=== PATIENT | female | born 1985 | race Caucasian/White ===

== ENCOUNTER 2020-11-04 08:00 | Outpatient (CLI) | payer BC | END 2020-11-04 23:59 | disposition home or self-care (01) | LOC: LAB.N 08:00 | PROVIDERS: ATTEND Physician Assistant Medical | DX: R05 Cough (principal); Z20.822 Contact with and (suspected) exposure to COVID-19 ==

== ENCOUNTER 2020-12-03 08:00 | Outpatient (CLI) | payer BC | END 2020-12-03 23:59 | disposition home or self-care (01) | LOC: LAB.N 08:00 | PROVIDERS: ATTEND Physician Assistant Medical | DX: R05 Cough (principal); Z20.822 Contact with and (suspected) exposure to COVID-19 ==

== ENCOUNTER 2021-07-30 17:18 | Emergency (ER) | payer BC ==
[2021-07-30 17:40] LABS: BASOPHILS # (AUTO) 0.1 10^3/uL (0.0-0.1); BASOPHILS % (AUTO) 0.7 %; EOSINOPHILS # (AUTO) 0.2 10^3/uL (0.0-0.7); EOSINOPHILS % (AUTO) 1.4 %; HGB - HEMOGLOBIN 14.7 g/dL (12.0-16.0); LYMPHOCYTES # (AUTO) 2.9 10^3/uL (1.5-3.5); LYMPHOCYTES % (AUTO) 26.8 %; MEAN CORPUSCULAR HEMOGLOBIN 27.9 pg (27.0-31.0); MEAN CORPUSCULAR HGB CONC 32.7 g/dL (32.0-36.0); MEAN CORPUSCULAR VOLUME 85.4 fL (81.0-99.0); MEAN PLATELET VOLUME 9.7 fL (7.9-10.8); MONOCYTES # (AUTO) 0.8 10^3/uL (0.0-1.0); MONOCYTES % (AUTO) 7.2 %; NEUTROPHILS # (AUTO) 6.9 10^3/uL (1.5-6.6); NEUTROPHILS % (AUTO) 63.6 %; PLT - PLATELET COUNT 467 10^3/uL (130-450); RED BLOOD COUNT 5.27 10^6/uL (4.20-5.40); RED CELL DISTRIBUTION WIDTH 13.2 % (12.0-15.0); WHITE BLOOD COUNT 10.8 x10^3/uL (4.8-10.8)
--- NOTE | 2021-07-30 17:48 | ED Physician Documentation ---
History of Present Illness - Stated complaint Stated Complaint: CHEST PAIN - Chief complaint Chief Complaint: Cardiac - Additonal information Additional information: 35-year-old female presents emergency department for evaluation of acute onset chest pain pressure as well as shortness of air. She has been busy the last few days caring for her sick infant who was recently diagnosed with pneumonia. She was at home sitting on the couch when she began to feel a squeezing chest pain. Symptoms began about 90 minutes ago. She endorses pain with deep breath. She has the Mirena IUD in place. She has never had any history of coronary jordy ry disease though she was diagnosed with hypertension in high school and states that she has had every test imaginable for further evaluation of this. No tobacco history. No abdominal pain nausea or vomiting. She does have a mild headache Review of Systems Constitutional: denies: Fever, Chills Eyes: reports: Reviewed and negative Ears: reports: Reviewed and negative Nose: reports: Reviewed and negative Throat: reports: Reviewed and negative Cardiac: reports: Chest pain / pressure. denies: Pedal edema, Calf pain Respiratory: reports: Dyspnea. 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 : None HEENT: None Psych: None Musculoskeletal: None Derm: None - Past Surgical History Past Surgical History: No - Present Medications Home Medications: Ambulatory Orders Medication Instructions Recorded Confirmed Cetirizine HCl [Zyrtec] 10 mg PO DAILY 07/30/21 07/30/21 Sertraline [Zoloft] 100 mg PO DAILY 07/30/21 07/30/21 amLODIPine [Norvasc] 5 mg PO DAILY 07/30/21 07/30/21 - Allergies Allergies/Adverse Reactions: Allergies Allergy/AdvReac Type Severity Reaction Status Date / Time Penicillins Allergy Hives Verified 07/30/21 17:23 - Social History Does the pt smoke?: No Smoking Status: Never smoker Does the pt drink ETOH?: No Does the pt have substance abuse?: No - Immunizations Immunizations are current?: Yes - POLST Patient has POLST: No PD ED PE NORMAL - General General: Alert and oriented X 3, No acute distress, Well developed/nourished - HEENT HEENT: Atraumatic, Moist mucous membranes, Pharynx benign - Neck Neck: Supple, no meningeal sign, No adenopathy - Cardiac Cardiac: RRR, No murmur - Respiratory Respiratory: No respiratory distress, Clear bilaterally - Abdomen Abdomen: Normal bowel sounds, Soft, Non tender, Non distended - Back Back: No CVA TTP, No spinal TTP - Derm Derm: Normal color, Warm and dry, No rash - Extremities Extremities: No deformity, No tenderness to palpate, Normal ROM s pain - Neuro Neuro: Alert and oriented X 3, 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 Eye Opening: Spontaneous Motor: Obeys Commands Verbal: Oriented GCS Score: 15 Results - Vitals Vitals: Vital Signs - 24 hr 07/30/21 07/30/21 07/30/21 17:23 18:28 19:13 Temperature 36.5 C Heart Rate 100 96 96 Respiratory 16 19 22 Rate Blood Pressure 180/100 H 159/59 H 144/96 H O2 Saturation 99 97 97 Oxygen O2 Source Room air - EKG (time done) 1724 Rate: Rate (enter#) (98) Rhythm: NSR [place]: Normal Intervals: Normal [place] QRS: Normal Ischemia: Normal ST segments Compare to prior EKG: Old EKG unavailable Computer interpretation: Agree with computer - Labs Labs: Laboratory Tests 07/30/21 07/30/21 07/30/21 17:35 17:35 17:35 WBC 10.8 RBC 5.27 Hgb 14.7 Hct 45.0 MCV 85.4 MCH 27.9 MCHC 32.7 RDW 13.2 Plt Count 467 H MPV 9.7 Neut # (Auto) 6.9 H Lymph # (Auto) 2.9 Sharp # (Auto) 0.8 Eos # (Auto) 0.2 Baso # (Auto) 0.1 Absolute Nucleated RBC 0.00 Nucleated RBC % 0.0 D-Dimer Sodium 137 Potassium 3.4 L Chloride 104 Carbon Dioxide 24 Anion Gap 9.0 BUN 14 Creatinine 0.8 Estimated GFR (MDRD) 83 L Glucose 127 H Calcium 9.1 Total Bilirubin 0.5 AST 20 ALT 23 Alkaline Phosphatase 79 Troponin I High Sens < 2.3 L Total Protein 8.0 Albumin 4.3 Globulin 3.7 Albumin/Globulin Ratio 1.2 Lipase 35 07/30/21 07/30/21 17:56 18:44 WBC RBC Hgb Hct MCV MCH MCHC RDW Plt Count MPV Neut # (Auto) Lymph # (Auto) Sharp # (Auto) Eos # (Auto) Baso # (Auto) Absolute Nucleated RBC Nucleated RBC % D-Dimer 300.5 H Sodium Potassium Chloride Carbon Dioxide Anion Gap BUN Creatinine Estimated GFR (MDRD) Glucose Calcium Total Bilirubin AST ALT Alkaline Phosphatase Troponin I High Sens < 2.3 L Total Protein Albumin Globulin Albumin/Globulin Ratio Lipase - Rads (name of study) CT pulm angio Radiology: Final report received (no evidenc eof PE. No acute airspace consolidation) cxr Radiology: Final report received (no acute cardiopulmonary process) PD MEDICAL DECISION MAKING - ED course Complexity details: reviewed results, re-evaluated patient, considered differential, d/w patient ED course: 35-year-old female presents emergency department for evaluation of substernal chest pain and pressure that began at rest this evening. She does have a history of hypertension. She also appears exceedingly anxious though she does not feel anxiety is the cause of her symptoms. Screening labs showed a mildly elevated D-dimer. This was completed as she had complained of pleuritic pain especially when taking a deep breath. Subsequent CT imaging was negative for a PE. No focal consolidations. Screening EKG was nonischemic high-sensitivity troponin negative x2. At the bedside we discussed screening labs EKG and imaging results. Patient is feeling better though she has had time to reflect and recognizes the anxiety is likely a contributing factor to this ED visit. I have encouraged her to have close follow-up with a primary doctor as well as a therapist to discuss her overwhelming concerns that are occurring in her life. Emergent return precautions otherwise discussed. Departure - Departure Disposition: Home, Self Care Clinical Impression: Chest pain Qualifiers: Chest pain type: chest pain on breathing Qualified Code(s): R07.1 - Chest pain on breathing; R07.81 - Pleurodynia Condition: Stable Record reviewed to determine appropriate education?: Yes Comments: Barbara you are seen today in the emergency department for some pain in your chest that occurred suddenly at rest. As we discussed at the bedside you did have a mildly elevated D-dimer. We did do a CT of your chest that did not show any pulmonary embolus. Your screening EKG, labs and chest x-ray were also otherwise normal. I do suspect that there is a component of anxiety that is contributing to your symptoms today. I encourage you to follow closely with your primary care doctor. You may benefit from some counseling or talk therapy to help you better manage your multiple stressors. If at any point you feel that your symptoms worsen, he cannot breathe adequately or have any fainting episodes and please return to the ER for second evaluation.
[2021-07-30 17:53] LABS: ALBUMIN 4.3 g/dL (3.2-5.5); ALBUMIN/GLOBULIN RATIO 1.2 (1.0-2.2); BILIRUBIN,TOTAL 0.5 mg/dL (0.2-1.0); CALCIUM 9.1 mg/dL (8.5-10.3); CREATININE 0.8 mg/dL (0.4-1.0); POTASSIUM 3.4 mmol/L (3.5-5.0)
--- NOTE | 2021-07-30 18:06 | XRAY Report ---
PROCEDURE: Chest 1 View X-Ray INDICATIONS: Chest pain TECHNIQUE: One view of the chest was acquired. COMPARISON: None FINDINGS: Surgical changes and devices: None. Lungs and pleura: No pleural effusions or pneumothorax. Lungs are clear. Mediastinum: Mediastinal contours appear normal. Heart size is normal. Bones and chest wall: No suspicious bony lesions. Overlying soft tissues appear unremarkable. IMPRESSION: No acute cardiopulmonary disease process. Reviewed by: Sherrill Singh MD, PhD on 07/30/2021 6:05 PM PDT Approved by: Sherrill Singh MD, PhD on 07/30/2021 6:05 PM PDT Station ID: [id number]
--- OUTSIDE RECORDS SUMMARY | 2021-07-30 18:07 | EXTERNAL MEDICAL SUMMARY RPT | Continuity of Care Document ---
:1985 Author Organization [place] Address [address] [place] [address] Phone Care Team Providers Name Role Phone M.D. Unavailable Unavailable Allergies No information. Encounters No information. Medications date description facility 20210510 nebivolol All 20210510 azithromycin All Problems date description facility 20210510 Otitis media, unspecified, bilateral A ll 20210510 Otitis media of bilateral ears All 20210510 Never smoker All 20210510 Details of drug misuse behavior All 20210510 Alcohol use All 20210510 Alcohol intake All Results No information. Vital Signs date measurement value source 20210510 weight_standard 217.2 lb 20210510 weight_metric 98.52 kg 20210510 temperature_standard 96.8 F 20210510 temperature_metric 36 C 20210510 respiration_rate 18 /min 20210510 height_standard 67 in 20210510 height_metric 170.18 cm 20210510 heart_rate 85 /min 20210510 BP_systolic 152 mm[Hg] 20210510 BP_diastolic 122 mm[Hg] 20210510 BMI 34.14 kg/m2
[2021-07-30] MEDS ORDERED: LORazepam 2 MG/ML VIAL IVP STA (18:37)
[2021-07-30] MEDS ORDERED: IOVERSOL 320 50 ML VIAL ONE (19:05)
--- NOTE | 2021-07-30 20:03 | CT Report ---
PROCEDURE: ANGIO CHEST W/WO INDICATIONS: elevated d-dimer; pleuritic chest pain CONTRAST: IV CONTRAST: Optiray 320 ml: 100 PO CONTRAST: *NO PO CONTRAST TECHNIQUE: After the administration of intravenous contrast, 2 mm axial images were acquired from the pulmonary apices to the posterior costophrenic angles during the arterial phase. In addition, 1 mm lung kernel and 5 mm soft tissue kernel reconstructions were performed. 3-dimensional coronal oblique maximum int ensity projection (MIP) reformats, 8 mm axial MIP, and 5 mm coronal and sagittal MPR reformats were t hen performed through the thorax. For radiation dose reduction, the following was used: automated exp osure control, adjustment of mA and/or kV according to patient size. COMPARISON: None. FINDINGS: Image quality: Excellent. Pulmonary arteries: Pulmonary arteries are normal in size, and demonstrate no intraluminal filling d efects to suggest central pulmonary embolism. Lungs and pleura: There is minimal dependent atelectasis. No acute consolidation No pleural effusions or pneumothorax. Central and peripheral airways are patent. Mediastinum: Heart size is normal, without pericardial effusion. No mediastinal or hilar adenopathy . There is residual thymus within the anterior mediastinum. Thoracic aorta is normal in caliber and e nhancement. Esophagus is normal in caliber, without hiatal hernia. Bones and chest wall: No suspicious bony lesions. Ribs and thoracic spine appear intact throughout. No axillary or supraclavicular adenopathy. Thyroid demonstrates no discrete nodules. Abdomen: Visualized upper abdominal solid organs appear normal in the early arterial phase of enhanc ement. IMPRESSION: 1. No evidence of pulmonary embolism. 2. No acute airspace consolidation. Reviewed by: Israel Abrams MD on 07/30/2021 8:02 PM PDT Approved by: Israel Abrams MD on 07/30/2021 8:02 PM PDT Station ID: [id number]
[2021-07-30 20:25] VITALS: BP 143/92
[2021-07-30] MEDS ORDERED: IOVERSOL 320 50 ML VIAL IV ONE (21:25)
== END 2021-07-30 20:25 | disposition home or self-care (01) ==
LOC: ED 17:18
DX: R07.1 Chest pain on breathing (principal); R07.81 Pleurodynia; R79.1 Abnormal coagulation profile
CPT/HCPCS: 36415; 71045; 71275; 80053; 83690; 84484; 85025; 85379; 93005; 96374; 99284; J2060

== ENCOUNTER 2022-03-07 08:00 | Outpatient (CLI) | payer BC | END 2022-03-07 23:59 | disposition home or self-care (01) | LOC: LAB.N 08:00 | PROVIDERS: ATTEND Registered Nurse | DX: H60.91 Unspecified otitis externa, right ear (principal) | CPT/HCPCS: 87070; 87181; 87205 ==

== ENCOUNTER 2022-07-23 13:00 | Outpatient (CLI) | payer BC ==
--- NOTE | 2022-07-23 12:29 | SLEEP CARE CONSULTATION ---
History of Present Illness Service Date and Time: 07/23/2022 1300 Reason for Visit: New patient Chief Complaint: reports: Unrefreshed sleep, Snoring, Excessive daytime sleepiness, Fatigue, Frequent awakenings at night Date of Onset: 1.5 years Usual bedtime: 9-10 PM Time it takes to fall asleep: 10-15 minutes, sometimes longer Snores at night: Yes Observed to quit breathing while asleep: No Sleeps alone due to snoring: Yes Number of times waking at night: 2-3 Reasons for waking at night: reports: Gasping for air, Bathroom, Other (unknown reasons) Toss, Turn, or Twitch while sleeping: Yes Recalls having dreams: No Usually gets out of bed at: 5402-0310 Feels refreshed in the morning: No Morning headache: Yes (daily; resolves midmorning) Sleepy or fatigued during the day: Yes Ever fallen asleep while driving: No Takes day naps: Yes (daily in last month; otherwise on weekends) Dreams during day naps: No Prior sleep studies: No Additional HPI information: I had the pleasure of seeing CHUNG DELACRUZ today regarding the possibility of her having a sleep disorder. Her current complaints are excessive daytime sleepiness, fatigue, frequent night awakenings, snoring and unrefreshed sleep. She states that her has noticed that her snoring so "horribly" that he would sleep in another room. She has been doing allergen shots for her allergies. She had nasal septoplasy last year but she is still snoring loudly. She will still wake up gasping for air. She does not feel like she sleeps well. She does not wake up refreshed and with a headaches. She is tired all the time. - Parasomnia Symptoms Ever been unable to move upon waking from sleep: No Walks in sleep: No Talks in sleep: No Ever acted out dreams in sleep: No Ever felt weak in the knees when startled or emotional: No Bothered by creepy, crawly, restless sensations in legs: No Problems with memory or concentration: Yes (hard to focus) Subjective Initial Hana Sleepiness Scale score: 9 (07/23/2022) Past Medical History Past Medical History: reports: Hypertension, Anxiety, Depression, Other (pre- diabetes) Social History The patient's occupation is a [employer]. Patient is and lives in [place]. Have you smoked in the past 12 months: No Alcohol use: Yes Alcohol amount and frequency: 1-2 glasses/beer, 2-3 times a month Caffeine use: Yes Caffeine amount and frequency: 2-3 cups coffee daily Family History Family history of sleep disordered breathing: Yes Family Hx Sleep Apnea: Mother: Sleep apnea - Treated, Father: Snoring, Grandparent: Snoring Allergies and Home Medications Known drug allergies: Yes (penicillins) Drug allergies reviewed: Yes Home medication list reviewed: Yes Allergy and home medication list: Allergies Penicillins Allergy Hives Medications: Amlodipine 5 mg daily Cymbalta 60 mg daily Zyrtec Review of Systems Weight gain over past 5 years: 30+ Cardiovascular: reports: high blood pressure, leg or foot swelling Gastrointestinal: reports: heartburn Neurological: reports: headaches Psychiatric: reports: anxiety, depression Ear/Nose/Throat: reports: nasal congestion, sinus problems, injury to nose, tonsillectomy, wisdom teeth removed Endocrine: reports: sluggishness, too hot or cold (hot) Musculoskeletal: reports: joint pain, back pain Immunologic: reports: sneezing, allergies to food or environment Physical Exam Vital signs obtained and entered by: TINO Delgado Heart Rate: 91 O2 Saturation: 99 Height: 5 ft 8 in Weight: 224 lb 12.8 oz Body Mass Index: 34.2 BMI Classification: Obese Neck circumference: 16.5 (inches) Mouth and throat: narrow oropharynx Soft palate: long Hard palate: normal Uvula: normal Uvula visualization: 25% Mallampati Class III Tongue: enlarged in size with teeth servin on lateral edges Tonsils: absent bilaterally Neck: normal w/o lymphadenopathy or thyromegaly Heart: regular rate and rhythm Lungs: clear bilaterally Impression and Plan 1. Suspected Obstructive Sleep Apnea-Hypopnea Syndrome, as suggested by a history of loud and irregular snoring, observed cessation of breath while asleep, gasping or choking in sleep, morning headache, frequent awakening during the night, unrefreshed sleep, cognitive impairment, and excessive daytime sleepiness. Narrow oropharynx and obesity are common predisposing factors for obstructive sleep apnea-hypopnea syndrome. I recommend proceeding to polysomnography to confirm the diagnosis and to assess severity. If the patient has significant sleep disordered breathing, a manual CPAP titration study will also be performed to find the optimal treatment pressure. I informed the patient of what the sleep studies involve and after some discussion, obtained agreement to proceed. The pathophysiology of obstructive sleep apnea-hypopnea syndrome was discussed with the patient and health risks of cardiovascular and cerebrovascular disease if not treated. 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 Patient agreed to plan. * Schedule polysomnography +- manual CPAP titration study and return in 1-2 weeks after the study to discuss result and initiate therapy. * Avoid long distance driving or driving when feeling sleepy. * Avoid alcohol, sedative and muscle relaxant around bedtime. * Attempt to lose weight. * Review instructions provided by trained office staff on how to prepare for the sleep study. * Return for follow-up after sleep study completed. Counseling Topics: Weight loss health impact Visit Type: In Office Time Spent with Patient (minutes): 31 Provider Statement: I spent 100% of the Face to Face Visit with the patient with greater than 50% spent counseling the patient and coordination of care.
== END 2022-07-23 13:01 | disposition home or self-care (01) ==
LOC: SC 13:00
PROVIDERS: ATTEND Nurse Practitioner Family
DX: G47.10 Hypersomnia, unspecified (principal); R41.89 Other symptoms and signs involving cognitive functions and awareness; G47.8 Other sleep disorders; R51.9 Headache, unspecified; R06.83 Snoring; R06.81 Apnea, not elsewhere classified; E66.9 Obesity, unspecified; Z68.34 Body mass index [BMI] 34.0-34.9, adult
CPT/HCPCS: 99203; 99212

== ENCOUNTER 2022-09-30 14:25 | Outpatient (CLI) | payer BC | END 2022-09-30 14:26 | disposition home or self-care (01) | LOC: SC 14:25 | PROVIDERS: ATTEND Nurse Practitioner Family | DX: G47.33 Obstructive sleep apnea (adult) (pediatric) (principal); R09.02 Hypoxemia; R00.0 Tachycardia, unspecified; E66.9 Obesity, unspecified; Z68.34 Body mass index [BMI] 34.0-34.9, adult | CPT/HCPCS: 95806 ==

== ENCOUNTER 2022-10-09 15:12 | Outpatient (CLI) | payer BC ==
--- NOTE | 2022-10-09 15:09 | SLEEP CARE CONSULTATION ---
Information from patient questionnaire entered by Bibi Emmanuel. I have reviewed and concur with the information entered by Bibi Emmanuel. This document represents the service I personally performed and the decisions made by me, Kylee Ryan ARNP. History of Present Illness Service Date and Time: 10/09/2022 1440 Initial Silvis Sleepiness Scale score: 9 (07/23/2022) Current [place]vis Sleepiness Scale score: 9 (10/09/22) Additional HPI information: CHUNG DELACRUZ returns via video telehealth visit for follow up and results of the recently performed home sleep study. HST showed moderate obstructive sleep apnea with an average AHI of 25.1 and helen oxygen saturation of 83%. I explained the pathophysiology behind obstructive sleep apnea. We then spent quite a bit of time discussing different treatment options. For mild obstructive sleep apnea, surgery and oral appliance are alternatives to nasal CPAP therapy but in moderate or severe cases, nasal CPAP is the most effective and reliable treatment. Because apnea is primarily in supine position, then positional management therapy could be effective. Methods discussed such as positioning with pillows, using a T-shirt with tennis balls in the back or commercial products that have a pillow format on back to prevent supine sleep. I reviewed the impact of weight changes on sleep apnea and strongly recommended losing weight. After some discussion, the patient opted to go with the nasal CPAP therapy. Nasal autoCPAP set at 4-15 cmH20 will be ordered with rationale explained. A manual titration study will be ordered if unable to find optimal pressure with office adjustments . I explained how CPAP machine works and what to expect when using the machine. Using CPAP every night in order to get used to it was emphasized. Patient advised to put CPAP mask on before getting into bed so as not to fall asleep without CPAP. To assist acclimation to CPAP use, it could also be used for a short time during day while reading or watching TV. The patient was instructed to call the CPAP supplier to discuss any mechanical problem that may occur. If the mask given is uncomfortable or is difficult to keep on through the night even with adjustment, contact the CPAP supplier as many will replace with another mask style if notified before 30 days. If snoring or perceives is not getting enough air or too much air from the machine, notify this office. Patient counseled not drink alcohol less than 4 hours before bedtime as it can increase snoring and apnea. Patient was cautioned about risks of drowsy driving until sleepiness symptoms resolve. Patient denies drowsy driving. Sleep Study - Results Type of Sleep Study: Home sleep study (COMPLETED 09/30/22) Prior sleep studies: No Polysomnography/Home Sleep Study results: Physician Impression: The quality of the study is good. The length of the study is adequate (> 240 minutes). Please also see the tabulated and graphic data. 1. Obstructive Sleep Apnea-Hypopnea (ICD-10 G47.33), moderate, with an AHI of 25.1/hr and helen SaO2 of 83%. During the study, the patient had 126 apneas (126 obstructive, 0 central, 0 mixed) and 68 hypopneas. The longest episode lasted 57.5 seconds. The respiratory events occurred more frequently during supine sleep (supine AHI was 51.3 and non-supine, 13.34). 2. Hypoxemia (ICD-10 R09.02), mild, with the lowest oxygen saturation of 83 % and 2.7 minutes with SaO2 under 90%. Baseline oxygen saturation was normal (Average oxygen saturation was 97%). 3. Tachycardia, with recorded heart rate of 124 beats per minute. Allergies and Home Medications Known drug allergies: Yes (penicillin) Drug allergies reviewed: Yes Home medication list reviewed: Yes (Losartan 100 mg daily) Allergy and home medication list: Allergies Penicillins Allergy (Verified 10/09/22 10:03) Hivsalinas Review of Systems Review of systems same as previous: Yes (no changes) Physical Exam Vital signs obtained and entered by: BIBI Degroot MA Height: 5 ft 8 in (PER PT) Weight: 220 lb (PER PT) Body Mass Index: 33.4 BMI Classification: Obese Impression and Plan 1. Obstructive Sleep Apnea-Hypopnea Syndrome, moderate, with lowest oxygen saturation of 83%. Obviously this is the cause of the patients symptoms of unrefreshed sleep, and excessive daytime sleepiness. Positive pressure therapy could benefit hypertension, pre-diabetes, anxiety and depression. As mentioned above, the patient will be started on nasal autoCPAP therapy with pressure set at 4-15 cmH2O. A manual titration study will be completed if unable to find optimal treatment pressure with office adjustments. Compliance guidelines also reviewed. A copy of compliance guidelines will be given for reference at check out. Because the apnea is more severe supine, I instructed to avoid sleeping supine using pillow positioning until able to start CPAP use. 2. Hypoxemia, mild, with a helen oxygen saturation of 83% and 2.7 minutes spent under 90%. Her baseline oxygen saturation was normal with an average oxygen saturation of 97%. * Nasal auto CPAP therapy, pressure at 4-15 cm H2O. * Attempt to lose weight. * Avoid alcohol consumption near bedtime. * Avoid supine sleep until using CPAP. * The patient is again cautioned about driving until sleepiness completely resolves. * Return one month after CPAP obtained. I will assess response to therapy and compliance at that time. Counseling Topics: Weight loss health impact Visit Type: Telehealth Video Video Type: [employer] Patient Location: Home Location of Provider: Office Patient agrees and consents to this telehealth visit type: Yes Patient agrees to have their insurance billed: Yes Time Spent with Patient (minutes): 21 Provider Statement: I spent 100% of the Telehealth Video Call with the patient with greater than 50% spent counseling the patient and coordination of care.
== END 2022-10-09 15:13 | disposition home or self-care (01) ==
LOC: SC 15:12
PROVIDERS: ATTEND Nurse Practitioner Family
DX: G47.33 Obstructive sleep apnea (adult) (pediatric) (principal); R09.02 Hypoxemia; E66.9 Obesity, unspecified; Z68.33 Body mass index [BMI] 33.0-33.9, adult

== ENCOUNTER 2022-11-14 08:00 | Outpatient (CLI) | payer BC ==
[2022-11-15 06:10] LABS: ADENOVIRUS F 40/41 Not Detected (Not Detected); ASTROVIRUS Not Detected (Not Detected); C DIFFICILE TOXIN A/B Not Detected (Not Detected); CAMPYLOBACTER Not Detected (Not Detected); CRYPTOSPORIDIUM Not Detected (Not Detected); CYCLOSPORA CAYETANENSIS Not Detected (Not Detected); ENTAMOEBA HISTOLYTICA Not Detected (Not Detected); ENTEROAGGREGATIVE E COLI Not Detected (Not Detected); ENTEROPATHOGENIC E COLI Not Detected (Not Detected); ENTEROTOXIGENIC E COLI Not Detected (Not Detected); GIARDIA LAMBLIA Not Detected (Not Detected); NOROVIRUS GI/GII Not Detected (Not Detected); PLESIOMONAS SHIGELLOIDES Not Detected (Not Detected); ROTAVIRUS A Not Detected (Not Detected); SALMONELLA Not Detected (Not Detected); SAPOVIRUS Not Detected (Not Detected); SHIGA-TOXIN-PRODUCING E COLI Not Detected (Not Detected); SHIGELLA/ENTEROINVASIVE E COLI Not Detected (Not Detected); VIBRIO Not Detected (Not Detected); VIBRIO CHOLERAE Not Detected (Not Detected); YERSINIA ENTEROCOLITICA Not Detected (Not Detected)
== END 2022-11-14 23:59 | disposition home or self-care (01) ==
LOC: LAB.N 08:00
PROVIDERS: ATTEND Family Medicine
DX: R19.5 Other fecal abnormalities (principal)
CPT/HCPCS: 87507

== ENCOUNTER 2022-11-22 09:21 | Outpatient (CLI) | payer OTHER, BC ==
--- NOTE | 2022-11-22 09:55 | Sleep Patient Instructions ---
Sleep Center Visit Summary - Patient Visit Information Reason for Visit: 1ST COMPLIANCE WITH PAP THERAPY - Patient Instructions Additional Instructions: You were here for follow up of CPAP therapy. You will be continued on CPAP therapy with pressure at 7-9 cmH2O. Please let us know if the pressure change is uncomfortable and we can make further adjustments of the pressure. You should follow up with sleep care in 1-2 months. You may contact us sooner for any questions or concerns. - Clinic Information Contact: [facility] [address] [place] [address] [email or web address] T: [phone]
--- NOTE | 2022-11-22 10:01 | SLEEP CARE CONSULTATION ---
Information from patient questionnaire entered by Bibi Emmanuel. I have reviewed and concur with the information entered by Bibi Emmanuel. This document represents the service I personally performed and the decisions made by , Kylee Ryan ARNP. History of Present Illness Service Date and Time: 11/22/2022920 Previous diagnosis: Moderate, Obstructive Sleep Apnea-Hypopnea Syndrome AHI: 25.1 (09/2022) Reason for follow up: first compliance Equipment type: CPAP (ResMed Airsense 11, 10/16/2022) Equipment obtained from: Other ([facility]; got initial supplies) Mask style: Nasal pillows (Sanjay II) Backup mask available: No (will keep old mask when replaced) Last cushion change: 1 month Prior sleep studies: No Type of Sleep Study: Home sleep study (COMPLETED 09/30/22) HPI additional information: CHUNG DELACRUZ was diagnosed to have moderate, AHI 25.1, obstructive sleep apnea- hypopnea syndrome and returned today for CPAP therapy first compliance follow- up. Sleep Study - Results Type of Sleep Study: Home sleep study (COMPLETED 09/30/22) Prior sleep studies: No CPAP Compliance Data - Data Reviewed with Patient Average duration of nightly device use: 7 hours 13 minutes Compliance rate %: 65 (14/20 days used) Current pressure setting (cmH2O): 4-15 (median 5.7, avg 8.1, max 9.4) Average residual AHI: 0.3 Central apnea: 0.1 Obstructive apnea: 0.1 Hypopnea: 0.1 Average large leak: 0.1 L/min Subjective Missed days of use due to: reports: mask issues Patient concerns: reports: mask discomfort, condensation in mask/hose Observed to snore while using device: No Current pressure setting perceived as: comfortable On therapy, patient: reports: sleeping better, awakening more refreshed, being more awake and alert during the day, more rested overall. denies: drowsiness while driving Initial [place] Sleepiness Scale score: 9 (07/23/2022) Current [place] Sleepiness Scale score: 7 (11/22/22) Allergies and Home Medications Known drug allergies: Yes (penicillins) Drug allergies reviewed: Yes Home medication list reviewed: Yes (no changes) Allergy and home medication list: Allergies Penicillins Allergy (Verified 11/21/22 13:58) Hives Review of Systems Review of systems same as previous: Yes (no changes) Physical Exam Vital signs obtained and entered by: BIBI Degroot MA Blood Pressure: 136/82 (LEFT YODIT) Cuff size: regular Heart Rate: 93 O2 Saturation: 99 Height: 5 ft 8 in (PER PT) Weight: 234 lb 6.4 oz Body Mass Index: 35.6 BMI Classification: Obese Impression and Plan 1. Obstructive Sleep Apnea-Hypopnea Syndrome, moderate, with fair treatment compliance and good apnea control. On CPAP therapy, the patient has better sleep quality and is more rested overall. She has felt like the pressure is a little low at the beginning of night. I will increase her ramp starting pressure to 5 cmH2O. The patients pressure will be changed to autoCPAP 7-9 cmH20 to reflect pressure being used. Patient advised to contact me if pressure change is uncomfortable so that it can be adjusted. Goals for apnea control discussed. She has had issues with the nasal pillows mask. Soreness under her nose and occasional condensation. I fit her to a [employer], large cushion and she felt it may work better for her. I sent the sample home with her to try and she can order more supplies for that mask if it works out. She voiced understanding. Patient's apnea severity and rationale for treatment to reduce apnea, improve sleep quality and reduce cardiovascular and cerebrovascular events was reviewed. I also reviewed the benefit of consistent device use of CPAP for hypertension, pre-diabetes, depression and anxiety. 2. Obesity, unspecified. Currently patients BMI is 35.6. Obesity increases the risk of apnea, CPAP pressure requirements and overall health risks especially cardiovascular and diabetes. Thus patient is advised to lose weight. * Change auto CPAP pressure to 7-9 cmH2O * Notify me if snoring with mask or feeling that the pressure is too much or too little * Attempt to lose weight * Call this office if any problems using CPAP * Return for follow up in 1-2 months, or sooner if concerns arise Counseling Topics: Spare mask, Weight loss health impact Visit Type: In Office Time Spent with Patient (minutes): 28 Provider Statement: I spent 100% of the Face to Face Visit with the patient with greater than 50% spent counseling the patient and coordination of care.
[2022-11-22 10:02] VITALS: BP 136/82; O2SAT 99
== END 2022-11-22 09:22 | disposition home or self-care (01) ==
LOC: SC 09:21
PROVIDERS: ATTEND Nurse Practitioner Family
DX: G47.33 Obstructive sleep apnea (adult) (pediatric) (principal); E66.9 Obesity, unspecified; Z68.35 Body mass index [BMI] 35.0-35.9, adult
CPT/HCPCS: 99212; 99213

== ENCOUNTER 2023-01-24 09:47 | Outpatient (CLI) | payer OTHER, BC ==
--- NOTE | 2023-01-24 10:27 | Sleep Patient Instructions ---
Sleep Center Visit Summary - Patient Visit Information Reason for Visit: 6-week follow-up - Patient Instructions Additional Instructions: You were here for follow up of CPAP therapy. You will be continued on CPAP therapy with pressure at 8-10 cmH2O. Please let us know if the pressure change is uncomfortable and we can make further adjustments of the pressure. I am also adding a machine service since your machine is not transmitting data. Your supplier should call you to schedule this with you. You should follow up with sleep care in 3 months. You may contact us sooner for any questions or concerns. - Clinic Information Contact: [facility] [address] [place] [address] [email or web address] T: [phone]
--- NOTE | 2023-01-24 10:32 | SLEEP CARE CONSULTATION ---
Information from patient questionnaire entered by Bibi Emmanuel. I have reviewed and concur with the information entered by Bibi Emmanuel. This document represents the service I personally performed and the decisions made by me, Kylee Ryan ARNP. History of Present Illness Service Date and Time: 01/24/2023 0947 Previous diagnosis: Moderate, Obstructive Sleep Apnea-Hypopnea Syndrome AHI: 25.1 (09/2022) Reason for follow up: other (6 WEEK F/U ) Equipment type: CPAP (ResMed Airsense 11, 10/16/2022 NEED MACHINE NOT READING) Equipment obtained from: Other ([facility]; getting supplies) Mask style: Nasal pillows (Braga FX, medium cushion) Backup mask available: Yes (other mask) Last cushion change: 5 weeks Prior sleep studies: No Type of Sleep Study: Home sleep study (COMPLETED 09/30/22) HPI additional information: CHUNG DELACRUZ was diagnosed to have moderate, AHI 25.1, obstructive sleep apnea- hypopnea syndrome and returned today for CPAP therapy six week with pressure change follow-up. Sleep Study - Results Type of Sleep Study: Home sleep study (COMPLETED 09/30/22) Prior sleep studies: No CPAP Compliance Data - Data Reviewed with Patient Average duration of nightly device use: 8 hours 29 minutes Compliance rate %: 96.6 (10/26/22-01/23/2023) Current pressure setting (cmH2O): 7-9 Average residual AHI: 4.8 Average large leak: 0.6 L/min Compliance data discussion: Her machine is not transmitting but we were able to get a sleep summary from her phone application with her data for the appointment today. Subjective Patient concerns: reports: condensation in mask/hose (occasional), other (few days). denies: aerophagia, mask discomfort, air blowing in eyes, mask leak noise, nasal congestion, dry mouth, nose, throat, epistaxis Observed to snore while using device: No Current pressure setting perceived as: comfortable On therapy, patient: reports: sleeping better, awakening more refreshed, being more awake and alert during the day, more rested overall. denies: drowsiness while driving Initial [place] Sleepiness Scale score: 9 (07/23/2022) Current [place] Sleepiness Scale score: 6 Allergies and Home Medications Known drug allergies: Yes (penicillins) Drug allergies reviewed: Yes Home medication list reviewed: Yes (no changes) Allergy and home medication list: Allergies Penicillins Allergy (Verified 01/23/23 13:44) Hives Review of Systems Review of systems same as previous: Yes (no changes) Physical Exam Vital signs obtained and entered by: Kylee Ko NP Blood Pressure: 134/87 Cuff size: wrist (left) Heart Rate: 70 O2 Saturation: 98 Height: 5 ft 8 in (PER PT) Weight: 237 lb 6.4 oz Body Mass Index: 36.1 BMI Classification: Obese Impression and Plan 1. Obstructive Sleep Apnea-Hypopnea Syndrome, moderate, with good treatment compliance and good apnea control. On CPAP therapy, the patient has better sleep quality and is more rested overall. Her residual AHI is 4.8. The patients pressure will be changed to autoCPAP 8-10 cmH2O. Patient advised to contact me if pressure change is uncomfortable so that it can be adjusted. Goals for apnea control discussed. Patient's machine is not transmitting her therapy data. I will write to have her CPAP serviced to see if they can correct the problem. I explained to patient that her DME should give her a call to schedule a time that she can bring down the CPAP for them to evaluate/repair her machine. She voiced understanding. Patient's apnea severity and rationale for treatment to reduce apnea, improve sleep quality and reduce cardiovascular and cerebrovascular events was reviewed. I also reviewed the benefit of consistent device use of CPAP for hypertension, pre-diabetes, depression and anxiety. 2. Obesity, unspecified. Currently patients BMI is 36.1. Obesity increases the risk of apnea, CPAP pressure requirements and overall health risks especially cardiovascular and diabetes. Thus patient is advised to lose weight. * Change auto CPAP pressure to 8-10 cmH2O * Service machine, it is not transmitting data * Notify me if snoring with mask or feeling that the pressure is too much or too little * Attempt to lose weight * Call this office if any problems using CPAP * Return for follow up in 3 months, or sooner if concerns arise Counseling Topics: Spare mask, Weight loss health impact Follow up with Sleep Care in: 3 months Visit Type: In Office Time Spent with Patient (minutes): 24 Provider Statement: I spent 100% of the Face to Face Visit with the patient with greater than 50% spent counseling the patient and coordination of care.
[2023-01-24 10:37] VITALS: BP 134/87; O2SAT 98
== END 2023-01-24 09:48 | disposition home or self-care (01) ==
LOC: SC 09:47
PROVIDERS: ATTEND Nurse Practitioner Family
DX: G47.33 Obstructive sleep apnea (adult) (pediatric) (principal); E66.9 Obesity, unspecified; Z68.36 Body mass index [BMI] 36.0-36.9, adult
CPT/HCPCS: 99212; 99213

== ENCOUNTER 2023-02-04 09:00 | Outpatient (CLI) | payer OTHER, BC ==
--- NOTE | 2023-02-04 10:39 | XRAY Report ---
PROCEDURE: Cervical Spine 2 View INDICATIONS: SPRAIN OF MUSCLE, FASCIA AND TENDON AT THE NECK LEVEL TECHNIQUE: 4 view(s) of the cervical spine were acquired. COMPARISON: None. FINDINGS: Bones: No fractures or dislocations to the T1 level. Slight curvature of the cervical spine. The la teral masses of C1 appear intact on the odontoid view. No suspicious bony lesions. Soft tissues: No prevertebral soft tissue swelling. IMPRESSION: 1. No acute abnormality. 2. Slight leftward curvature of the cervicothoracic spine. Reviewed by: Joaquin Hollins on 02/04/2023 10:38 AM [facility] Approved by: Joaquin Hollins on 02/04/2023 10:38 AM [facility] Station ID: [id number]
--- NOTE | 2023-02-04 10:40 | XRAY Report ---
PROCEDURE: Thoracic Spine 2 View INDICATIONS: MUSCLE SPASM OF THE THORACIC BACK TECHNIQUE: 2 views of the thoracic spine were acquired. COMPARISON: None. FINDINGS: Bones: No fractures or dislocations. No suspicious bony lesions. 12 pairs of ribs are noted, and a ppear intact where visualized. Mild rightward curvature of the lower thoracic spine and leftward cur vature of the cervicothoracic spine. Soft tissues: No paravertebral stripe thickening. IMPRESSION: No acute abnormality. Reviewed by: Joaquin Hollins on 02/04/2023 10:39 AM [facility] Approved by: Joaquin Hollins on 02/04/2023 10:39 AM [facility] Station ID: [id number]
== END 2023-02-04 09:15 | disposition home or self-care (01) ==
LOC: DI.N 09:00
PROVIDERS: ATTEND Family Medicine
DX: S16.1XXA Strain of muscle, fascia and tendon at neck level, initial encounter (principal); M62.830 Muscle spasm of back; M41.9 Scoliosis, unspecified

== ENCOUNTER 2023-07-30 14:16 | Outpatient (CLI) | payer BC | END 2023-07-30 14:17 | disposition home or self-care (01) | LOC: LAB.N 14:16 | PROVIDERS: ATTEND Physician Assistant Medical | DX: N30.00 Acute cystitis without hematuria (principal) | CPT/HCPCS: 87086 ==

== ENCOUNTER 2023-09-03 11:00 | Outpatient (CLI) | payer OTHER, BC ==
[2023-09-03 20:27] LABS: BACTERIAL VAGINOSIS DNA NEGATIVE (NEGATIVE)
[2023-09-03 20:28] LABS: CANDIDA GLABRATA DNA NEGATIVE (NEGATIVE); CANDIDA GROUP DNA NEGATIVE (NEGATIVE); CANDIDA KRUSEI DNA NEGATIVE (NEGATIVE); TRICHOMONAS VAGINALIS DNA NEGATIVE (NEGATIVE)
== END 2023-09-03 11:15 | disposition home or self-care (01) ==
LOC: LAB.N 11:00
PROVIDERS: ATTEND Physician Assistant Medical
DX: R30.0 Dysuria (principal); N89.8 Other specified noninflammatory disorders of vagina
CPT/HCPCS: 81514; 87086

== ENCOUNTER 2023-10-30 15:16 | Outpatient (CLI) | payer OTHER, BC ==
--- NOTE | 2023-10-30 15:54 | Sleep Patient Instructions ---
Sleep Center Visit Summary - Patient Visit Information Reason for Visit: 9-month follow-up for PAP therapy - Patient Instructions Additional Instructions: You were here for follow up of CPAP therapy. You will be continued on CPAP therapy with pressure at 10-12 cmH2O. Please let us know if the pressure change is uncomfortable and we can make further adjustments of the pressure. You should follow up with sleep care in 6 months. You may contact us sooner for any questions or concerns. - Clinic Information Contact: [facility] [address] [place] [address] [email or web address] T: [phone]
--- NOTE | 2023-10-30 15:59 | SLEEP CARE CONSULTATION ---
Information from patient questionnaire entered by Bart Emmanuel. I have reviewed and concur with the information entered by Bart Emmanuel. This document represents the service I personally performed and the decisions made by me, Kylee Ryan ARNP. History of Present Illness Service Date and Time: 10/30/2023 1516 Previous diagnosis: Moderate, Obstructive Sleep Apnea-Hypopnea Syndrome AHI: 25.1 (09/2022) Reason for follow up: other (9 MONTH F/U) Equipment type: CPAP (ResMed Airsense 11, 10/16/2022 NEED MACHINE) Equipment obtained from: Other ([facility]; getting supplies) Mask style: Nasal pillows (Braga FX, medium cushion) Mask brand: Resmed Backup mask available: Yes Last cushion change: 2 weeks Prior sleep studies: No Type of Sleep Study: Home sleep study (COMPLETED 09/30/22) HPI additional information: CHUNG DELACRUZ was diagnosed to have moderate, AHI 25.1, obstructive sleep apnea- hypopnea syndrome and returned today for CPAP therapy 9 month follow-up. Sleep Study - Results Type of Sleep Study: Home sleep study (COMPLETED 09/30/22) Prior sleep studies: No CPAP Compliance Data - Data Reviewed with Patient Average duration of nightly device use: 9 HRS 6 MINS Compliance rate %: 99 (01/28/23-10/29/23; 275/275 days used) Current pressure setting (cmH2O): 8-10 (avg 10) Average residual AHI: 4.1 Central apnea: 0.3 Obstructive apnea: 2.5 Hypopnea: 1.2 Average large leak: 0 L/min Subjective Missed days of use due to: reports: other Patient concerns: reports: condensation in mask/hose, other (HEADACHE, SNORE WHILE USING DEVICE, HIGH BP FEELING BLOATED). denies: aerophagia, mask discomf ort, air blowing in eyes, mask leak noise, nasal congestion, dry mouth, nose, throat, epistaxis Observed to snore while using device: Yes (not often) Current pressure setting perceived as: too low On therapy, patient: reports: sleeping better, awakening more refreshed, being more awake and alert during the day, more rested overall. denies: drowsiness while driving Initial [place] Sleepiness Scale score: 9 (07/23/2022) Current [place] Sleepiness Scale score: 4 (10/30/23) Allergies and Home Medications Known drug allergies: Yes (as listed) Allergy and home medication list: Allergies Penicillins Allergy (Verified 10/30/23 15:19) Hives Review of Systems Review of systems same as previous: Yes (NO CHANGE) Physical Exam Vital signs obtained and entered by: BART Degroot MA Blood Pressure: 159/107 (LEFT ARM) Cuff size: regular Heart Rate: 81 O2 Saturation: 98 Height: 5 ft 8 in Weight: 235 lb 12.8 oz Body Mass Index: 35.8 BMI Classification: Obese Impression and Plan 1. Obstructive Sleep Apnea-Hypopnea Syndrome, moderate, with good treatment compliance and good apnea control. On CPAP therapy, the patient has better sleep quality and is more rested overall. She states that in the last month she has been feeling more tired and napping often. She had a family emergency and some stressful work situations she has been dealing with in last several months. She feels she is having more headaches and her has noticed a few nights where she snored. Her residual AHI is at 4.1. The patients pressure will be changed to autoCPAP 10-12 cmH20 for patient comfort. Patient advised to contact me if pressure change is uncomfortable so that it can be adjusted. Goals for apnea control discussed. Patient's apnea severity and rationale for treatment to reduce apnea, improve sleep quality and reduce cardiovascular and cerebrovascular events was reviewed. I also reviewed the benefit of consistent device use of CPAP for hypertension, pre-diabetes, depression/anxiety. 2. Obesity, unspecified. Currently patients BMI is 35.8. Obesity increases the risk of apnea, CPAP pressure requirements and overall health risks especially cardiovascular and diabetes. Thus patient is advised to lose weight. 3. Elevated blood pressure reading in patient with hypertension. Her initial reading was 159/107. She says her pressures have been higher recently and she is supposed to be checking it at home before a follow up with her PCP. She has no complaints of chest pain, shortness of air, dizziness or headaches today. She will followup with her PCP. * Change auto CPAP pressure to 10-12 cmH2O * Notify me if snoring with mask or feeling that the pressure is too much or too little * Attempt to lose weight * Call this office if any problems using CPAP * Return for follow up in 12 months, or sooner if concerns arise Adjust device pressure to (cmH2O): 10-12 Counseling Topics: Spare mask, Weight loss health impact Follow up with Sleep Care in: 6 months Visit Type: In Office Time Spent with Patient (minutes): 22 Provider Statement: I spent 100% of the Face to Face Visit with the patient with greater than 50% spent counseling the patient and coordination of care.
[2023-10-30 16:01] VITALS: BP 159/107; O2SAT 98
== END 2023-10-30 15:17 | disposition home or self-care (01) ==
LOC: SC 15:16
PROVIDERS: ATTEND Nurse Practitioner Family
DX: G47.33 Obstructive sleep apnea (adult) (pediatric) (principal); E66.9 Obesity, unspecified; Z68.35 Body mass index [BMI] 35.0-35.9, adult; I10 Essential (primary) hypertension
CPT/HCPCS: 99212; 99213